=== PATIENT | female | born 1950 | race Caucasian/White ===

== ENCOUNTER → 2021-08-12 10:10 | Outpatient (CLI) | payer MEDICARE, SELFPAY ==
--- NOTE | ~2021-08-12 | XR_ITS ---
EXAMINATION: XR chest 2V DATE: 08/12/2021 10:28 INDICATION: Cough, unspecified TECHNIQUE: PA and lateral views of the chest are obtained. COMPARISON: 07/03/2018 FINDINGS: There is an approximately 10 cm mass of the right upper lobe. There is fullness of the righ t hilum. No pleural effusion or pneumothorax is identified. The heart size is normal. There is severe thoracic spondylosis. IMPRESSION: 1. Right upper lobe mass concerning for primary bronchogenic carcinoma. Further evaluation with CT of the chest is recommended. 2. Fullness of the right hilum which could reflect hilar lymphadenopathy Reviewed, dictated and finalized at location A.
== END ==
PROVIDERS: PCP Family Medicine; Visit Provider Physician Assistant Medical
DX: R05.9 Cough, unspecified (principal); J44.9 Chronic obstructive pulmonary disease, unspecified; M47.814 Spondylosis without myelopathy or radiculopathy, thoracic region
CPT/HCPCS: 71046

== ENCOUNTER 2021-08-13 07:25 | Outpatient (CLI) | payer MEDICARE, SELFPAY ==
--- NOTE | ~2021-08-13 | CT_ITS ---
EXAMINATION:CT diagnostic chest w con DATE: 08/13/2021 08:01 INDICATION: Mass in right lung upper lobe. TECHNIQUE: Computed tomography (CT) of the chest was performed with 75 mL Omnipaque 300 intravenous c ontrast. Automated exposure control and iterative reconstruction technique were employed. The dose-le ngth product (DLP) was 164.51 mGy-cm. COMPARISON: Chest 2 views 08/12/2021 FINDINGS: There is mild emphysema. There is a 10.3 x 8.0 cm mass in right lung upper lobe. There are airspace and groundglass opacities in right upper lobe and medial segment right middle lobe. There ar e groundglass opacities in superior segment right lower lobe. There is mild atelectasis bilaterally. There are tiny pleural effusions. The heart size is normal. There are coronary artery calcifications. No pericardial effusion. There is a 2.7 x 1.6 cm right hilar lymph node. There is severe thoracic sp ondylosis. IMPRESSION: 1. 10.3 x 8.0 cm mass in right lung upper lobe, consistent with primary bronchogenic carcinoma. CT-gu ided biopsy is recommended. 2. Right hilar lymphadenopathy, consistent with metastatic disease. 3. Pneumonia in right lung. 4. Mild emphysema. Reviewed, dictated and finalized at location A. IMPRESSION: 1. 10.3 x 8.0 cm mass in right lung upper lobe, consistent with primary broncho genic carcinoma. CT-guided biopsy is recommended. 2. Right hilar lymphadenopathy, consistent with metastatic disease. 3. Pneumonia in right lung. 4. Mild emphysema.
[2021-08-13 07:56] LABS: Estimated Glomerular Filt Rate > 60
== END 2021-08-13 07:26 | disposition home or self-care (01) ==
PROVIDERS: PCP Family Medicine; Visit Provider Physician Assistant Medical
DX: R91.8 Other nonspecific abnormal finding of lung field (principal); R93.89 Abnormal findings on diagnostic imaging of other specified body structures; R59.0 Localized enlarged lymph nodes; J18.9 Pneumonia, unspecified organism; J43.9 Emphysema, unspecified; J90 Pleural effusion, not elsewhere classified; M47.814 Spondylosis without myelopathy or radiculopathy, thoracic region
CPT/HCPCS: 71260; Q9967

== ENCOUNTER 2021-08-21 02:07 | Outpatient (CLI) | payer MEDICARE, SELFPAY ==
[2021-08-14 14:22] VITALS: BMI 19.5
--- NOTE | 2021-08-14 14:28 | PC.NURSE ---
Pre Radiology instructions Report to the Outpatient Waiting Room, entrance under the green pavilion located off [facility], at time ____929___ on date __08/21/21 . Procedure Time: ___1130 . One visitor will be allowed to accompany the patient into the hospital. The visitor will be instructed to remain with patient at all times or leave the building. We will allow the visitor to come back to the postoperative area when patient is ready. You and your visitor will be asked a series of questions to screen for COVID 19 for your protection. A mask is required within the hospital. Patients are to have no food or drink 6 hours prior to procedure time (0530 AM) Driving will be restricted after the procedure, you must have a person to drive you home. Labs will be drawn in preop area and once reviewed, you will be taken to radiology area for procedure. When the procedure is completed, you will be taken to outpatient where you will be monitored for several hours. You may have one visitor in this area. Other than holding anti-coagulants, patient may take other medication(s) as scheduled. Prior to your appointment date patients are instructed to hold anti-coagulants after discussing with ordering provider to stop. If unable to discontinue anti-coagulants please notify radiologist. No aspirin or warfarin (Coumadin) for 7 days prior to the procedure. No clopidogrel (Plavix), ticagrelor (Brilinta), prasugrel (Effient) or dabigatran (Pradaxa) for 5 days prior to the procedure. No rivaroxaban (Xarelto), apixaban (Eliquis), dipyridamole (Aggrenox or Persantine) or cilostazol (Pletal) for 2 days prior to the procedure. Medications to discontinue per physician: Date to take last dose: Please leave all valuables, including medications, at home the day of procedure. The hospital will not accept responsibility for valuables. Wear comfortable, loose fitting clothing. Follow any additional instructions given to you from ordering provider. Telephone instructions given to __PT and asked if any additional questions and then verbalized understanding. Patient advised to call scheduling provider office or registration scheduling [phone] if any additional questions.
[2021-08-21] VITALS (7 sets, daily range): BP systolic 136–170; BP diastolic 72–96; PULSE 59–72; RESP 16–22; TEMP 36.4; O2SAT 96–100
--- NOTE | ~2021-08-21 | XR_ITS ---
XR chest 1V portable DATE: 08/21/2021 15:33 INDICATION: 3 hour delayed chest radiograph post image guided percutaneous needle biopsy of right upp er lobe lung mass TECHNIQUE: Portable upright AP chest on 08/21/2021 1529 hours COMPARISON: 08/21/2021 portable AP chest at 1326 hours FINDINGS: There remains no evidence of right pneumothorax following percutaneous needle biopsy right upper lobe lung mass today. IMPRESSION: No iatrogenic right pneumothorax is detected [address]-guided percutaneous nee dle biopsy of right upper lobe lung mass Reviewed, dictated and finalized at location B. IMPRESSION: No iatrogenic right pneumothorax is detected [address]-g uided percutaneous needle biopsy of right upper lobe lung mass
--- NOTE | ~2021-08-21 | XR_ITS ---
EXAMINATION: XR chest 1V portable DATE: 08/21/2021 13:35 INDICATION: One hour post percutaneous right lung biopsy TECHNIQUE: frontal view of the chest was obtained. COMPARISON: Chest radiograph dated 08/21/21 FINDINGS: And seen is a large right upper lobe mass opacifying a significant portion of the right upper lung zo ne. Streaky opacities consistent compressive atelectasis and bronchovascular crowding in the more med ial right upper lobe. No other airspace opacities, pulmonary edema, pleural effusion or pneumothorax. The cardiomediastinal silhouette is normal. Mild S-shaped thoracolumbar scoliosis with severe spondy losis. IMPRESSION: 1. No pneumothorax or other acute cardiopulmonary disease post percutaneous biopsy of a large right u pper lobe mass concerning for primary bronchogenic carcinoma. Reviewed, dictated and finalized at location A. IMPRESSION: 1. No pneumothorax or other acute cardiopulmonary disease post percutaneous bio psy of a large right upper lobe mass concerning for primary bronchogenic carcin nani.
--- NOTE | ~2021-08-21 | XR_ITS ---
XR chest 1V 08/21/2021 12:35 Indication: Post right lung biopsy. Procedure: AP view of the chest Comparison: 08/12/2021 Findings: Heart size is normal. Left lung clear. No acute osseous abnormality. No pleural effusion or pneumothorax. Large right upper lobe mass, consistent with bronchogenic carcinoma until proven other hoffman. Impression: 1: Large right upper lobe mass, consistent with bronchogenic carcinoma until proven otherwise. No pne umothorax identified post biopsy. Reviewed, dictated and finalized at location A. Impression: 1: Large right upper lobe mass, consistent with bronchogenic carcinoma until pr oven otherwise. No pneumothorax identified post biopsy.
--- NOTE | ~2021-08-21 | CT_ITS ---
EXAMINATION: CT biopsy lung w/imaging DATE: 08/21/2021 12:47 INDICATION: Right upper lobe mass TECHNIQUE: The procedure including the risks and benefits was discussed with the patient. Risks discu ssed included infection, approximately 1/20 risk of symptomatic hemorrhage beyond mild hemoptysis, ap proximately 1/3 risk of pneumothorax, and approximately 1/10 risk of pneumothorax severe enough to wa rrant chest tube placement. The patient understood the risks and agreed to proceed. The patient was p laced supine. The skin overlying the infraclavicular right anterior chest was prepped and draped in sterile fashion. Anesthetic was administered with 1% lidocaine subcutaneously. A 19 gauge outer nee dle was advanced under CT guidance to the lesion of interest. A 20 gauge core biopsy needle was then used to obtain 5 core biopsy specimens. The needle was removed and the entry site was cleaned and isiah ssed. There were no immediate complications. The dose-length product was 83.54 mGy-cm. FINDINGS: CT images demonstrate the outer needle tip within the 9.5 x 8.3 cm right upper lobe mass. IMPRESSION: 1. Successful CT-guided biopsy of a 9.5 cm right upper lobe mass. Reviewed, dictated and finalized at location A.
[2021-08-21 10:18] LABS: Mean Platelet Volume 9.8 fl (7.4-10.4); Platelet Count Result 308 k/mm3 (150-375)
[2021-08-21 11:14] LABS: Prothrombin Time 13.1 Seconds (11.1-14.7)
== END 2021-08-21 15:50 | disposition home or self-care (01) ==
PROVIDERS: PCP Family Medicine; Referring Provider Physician Assistant Medical; Visit Provider Radiology Diagnostic Radiology
PROC: BB24ZZZ Computerized Tomography (CT Scan) of Bilateral Lungs (ICD-10-PCS; CPT 32408; principal; 2021-08-21 11:30)
DX: R91.8 Other nonspecific abnormal finding of lung field (principal); R68.89 Other general symptoms and signs
CPT/HCPCS: 32408; 36415; 71045; 85049; 85610; 88305; 88342

== ENCOUNTER 2021-09-22 00:24 | Day surgery (SDC) | payer MEDICARE, SELFPAY ==
--- NOTE | 2021-09-16 13:12 | PC.NURSE ---
Report to the Outpatient Waiting Room, entrance under the green pavilion located off [facility], at time _1200 on date _09/22/21 . OR Time: __1400 . - You and your visitor will be asked a series of questions to screen for COVID 19 for your protection. - Only one visitor is allowed at this time. - The patient visitor is requested to leave or wait in car when not with patient. - A mask is required within the hospital. Patients may have clear liquids (water, carbonated beverages, clear teas, apple juice) until 3 hours prior to surgery with a maximum of 20 ounces. - No food from midnight until time of surgery - Infants may have breast milk until 4 hours before surgery, infant formula 6 hours prior to surgery. - Children will be allowed to drink immediately following surgery. If applicable, please bring a bottle or sippy cup to assist with drinking. Juice, water, soda, and popsicles are readily available. For infants on formula, please bring formula the day of surgery. Pacifiers are allowed. Take the following medications with a SIP of water the morning of surgery: ____INHALER Medications to discontinue per physician NONE Date to take last dose Please no make-up, nail yoruba, hairspray, perfume, deodorant, or body powder the day of surgery. No jewelry (including any body piercings) or valuables the day of surgery, leave them at home. Please take a shower or bath the night before, or the morning of, surgery with an antibacterial soap. Wear comfortable, loose fitting clothing. Children are encouraged to wear pajamas. - Jewelry must be removed prior to entering the operating room. Rings and piercings that are not removed may be cut off. - The hospital will not accept responsibility for valuables. - Please leave all valuables, including medications, at home the day of surgery. If you are going home after surgery, a licensed car pick up driver must drive you home. - NO public transportation without another adult. - We recommend that an adult stay with you for 24 hours following discharge. - We also recommend that you do not drive, make important decision, drink alcoholic beverages, or take any drugs that were not prescribed by your health care provider for at least 24 hours after your discharge time. For Pediatric surgeries, we recommend two adults accompany the child home (only one inside the building at this time). Follow any additional instructions given to you from your surgeon. If you or anyone in your household have experienced Covid symptoms in the past week, please notify your surgeon or the nurse liaison at the phone number below for possible testing. Telephone instructions given to __PATIENT and asked if any additional questions and then verbalized understanding. Patient advised to call surgeon office or pre surgery nurse liaison [phone] if any additional questions.
[2021-09-16 13:20] VITALS: BMI 19.0
--- NOTE | 2021-09-19 14:35 | WPDANESEPPF ---
Anes - Initial Pre Proc Eval Procedure: Operation Date: 09/22/21 11:30 Proposed Procedures p Insertion Rocio Cath - Atif Forrest DO <Link Bettencourt MD - Last Filed: 09/24/21 12:35> Date/Time: 09/19/21 14:35 <Link Bettencourt MD - Last Filed: 09/24/21 12:35> Surgeon: Atif Forrest DO <Link Bettencourt MD - Last Filed: 09/24/21 12:35> Pre Op Diagnosis: malignant neoplasm upper lobe right lung <Link Bettencourt MD - Last Filed: 09/24/21 12:35> Patient Data Age: 70 Gender: F Height: 1.57 m Weight: 47.2 kg <Link Bettencourt MD - Last Filed: 09/24/21 12:35> Allergies Allergy/AdvReac Type Severity Reaction Status Date / Time codeine Allergy Unknown Nausea and Verified 09/22/21 09:54 Vomiting <Link Bettencourt MD - Last Filed: 09/24/21 12:35> Home Medications Medication Instructions Recorded Confirmed Type umeclidinium 62.5 mcg-vilanterol 1 inh inhalation Q24H #180 ea 05/27/21 09/22/21 Rx 25 mcg/actuation powdr for inhalation (Anoro Ellipta) albuterol sulfate 90 mcg/actuation 1 puff inhalation Q4H PRN 08/04/21 09/22/21 Rx aerosol inhaler (ProAir HFA) shortness of breath or wheezing #8 grams sertraline 100 mg tablet 200 mg PO HS 08/14/21 09/22/21 History ibuprofen 600 mg tablet 600 mg PO QID PRN Pain 09/16/21 09/22/21 History tramadol 50 mg tablet 50 mg PO Q8H PRN pain #90 tabs 09/17/21 09/18/21 Rx oxycodone 5 mg capsule 5 mg PO Q8H PRN Pain #21 caps 09/18/21 Rx <Link Bettencourt MD - Last Filed: 09/24/21 12:35> Patient hx anesthesia problems: none <Slick Hale DO - Last Filed: 09/22/21 12:28> Family hx anesthesia problems: none <Slick Hale DO - Last Filed: 09/22/21 12:28> Results Review: All pre-operative results and documents have been reviewed as part of the pre-operative evaluation. <Link Bettencourt MD - Last Filed: 09/24/21 12:35> [facility] Past Medical History Medical History: Medical History Achrochordon Acute bronchitis, unspecified Alcohol abuse Alcohol use Anxiety disorder, unspecified Benign hypertension BMI 20.0-20.9, adult BMI 21.0-21.9, adult BMI between 19-24,adult Chronic sinus complaints Depression with anxiety Dietary counseling and surveillance (12/07/17) Elevated AFP Elevated bilirubin Elevated fasting glucose Elevated liver enzymes Hepatic cyst Hyperlipidemia, unspecified Liver disease Low back pain Low vitamin D level Mild neurocognitive disorder Other chronic pain Right lower quadrant abdominal pain Routine physical examination Screening for breast cancer Screening for colon cancer Skin lesion Tobacco abuse Urinary symptom or sign <Link Bettencourt MD - Last Filed: 09/24/21 12:35> Surgical History Surgical History: Surgical History Hx of cataract surgery <Link Bettencourt MD - Last Filed: 09/24/21 12:35> Family History Family History: Family History Mother Hypertension Family history of diabetes mellitus in first degree relative Father Hypertension Family history of diabetes mellitus in first degree relative Family history of coronary artery disease Sibling Hypertension Heart disease COPD (chronic obstructive pulmonary disease) Immune disorder Son Asthma Daughter Hypertension <Link Bettencourt MD - Last Filed: 09/24/21 12:35> Social History Social History: Social History Smoking packs per day: 1.5 Smoking cigarettes per day: 30.0 Years smoked: 50 Smoking pack-years: 75.00 Smoking status: Current every day smoker Tobacco type: cigarettes Second hand tobacco smoke exposure: No Alcohol intake: current Drinks per week: 6 Substance use: current Substance us
--- NOTE | ~2021-09-22 | XR_ITS ---
EXAMINATION: XR chest port-a-cath/central DATE: 09/22/2021 14:23 INDICATION: Port catheter insertion TECHNIQUE: frontal view of the chest was obtained. COMPARISON: Chest radiograph dated 08/21/2021 FINDINGS: Interval placement of a left internal jugular central venous port catheter with distal tip in the cau gini superior vena cava near the superior cavoatrial junction. Left lung is clear. Large masslike opac ity occupying a significant portion of the right mid to upper lung zone consistent with biopsy-proven lung cancer. Mild reticular opacities in the more medial right upper lung zone which could represent atelectasis or postobstructive pneumonia or pulmonary edema. No pleural effusion or pneumothorax. Th e cardiomediastinal silhouette is normal.. Mild lower thoracic dextrocurvature and upper thoracic lev ocurvature. IMPRESSION: 1. Left internal jugular central venous port catheter tip at the caudal superior vena cava. 2. Large mass in the right mid to upper lung zone consistent with biopsy-proven primary lung cancer. 3. Increased interstitial pattern in the medial right upper lung zone which could represent secondary atelectasis or postobstructive pneumonia or pulmonary edema. Reviewed, dictated and finalized at location A. IMPRESSION: 1. Left internal jugular central venous port catheter tip at the caudal superio r vena cava. 2. Large mass in the right mid to upper lung zone consistent with biopsy-proven primary lung cancer. 3. Increased interstitial pattern in the medial right upper lung zone which cou ld represent secondary atelectasis or postobstructive pneumonia or pulmonary ed maximo.
--- NOTE | ~2021-09-22 | XR_ITS ---
EXAMINATION: XR fl guide central line place DATE: 09/22/2021 14:09 INDICATION: Port catheter insertion TECHNIQUE: 4 fluoroscopic images of the chest were obtained during procedure performed by Dr. Forrest . Radiologist was not present for the imaging or procedure. The amount of fluoroscopy time used pratimain g this procedure was 1.5 minutes. COMPARISON: 08/21/2021 FINDINGS: Images demonstrate placement of a left internal jugular central venous port catheter with distal tip near the superior cavoatrial junction. Large masslike opacity right upper lobe consistent with biopsy -proven lung cancer. Visualized portion of the left lung are clear. No evident pneumothorax. IMPRESSION: 1. Left internal jugular central venous port catheter tip at the superior cavoatrial junction. 2. Large right upper lobe mass consistent with biopsy-proven primary bronchogenic carcinoma. Reviewed, dictated and finalized at location A. IMPRESSION: 1. Left internal jugular central venous port catheter tip at the superior cavoa trial junction. 2. Large right upper lobe mass consistent with biopsy-proven primary bronchogen ic carcinoma.
[2021-09-22] MEDS: LACTATED RINGERS 1,000 ML 30 ML IV CONT (10:00)
[2021-09-22 10:15] VITALS: BP 162/82; PULSE 63; TEMP 36.7; O2SAT 99
[2021-09-22] MEDS: fentaNYL CITRATE INJ (*CRX) 100 MCG/2 ML VIAL 50 MCG IV PUSH (10:35)
[2021-09-22] MEDS: KETOROLAC 15 MG/ML VIAL (*BKC) IV PUSH (12:23)
--- NOTE | 2021-09-22 13:12 | WPDHPUPDATE1 ---
History and Physical Update Update Date/Time: 09/22/21 13:12 History and Physical has been reviewed, including an updated exam of the patient. There are NO changes in the patient's condition. Risks, benefits, and alternatives have been discussed and questions answered. Patient agrees to proceed with procedure.
--- NOTE | 2021-09-22 13:12 | PM.IMHP ---
H&P: HPI History of Present Illness Date/Time: 09/22/21 13:12 Chief Complaint: Right lung cancer Narrative: 70 yo presents with recent finding of right lung cancer. She has seen the Oncologist and is planning to start chemotherapy. She is in need of port placement to start chemo. Review of Systems Review of Systems: All systems reviewed & are unremarkable except as noted in HPI and below Constitutional: Constitutional: Denies chills, Denies fever(s), Denies headache(s) and Denies weight loss Eyes: Eyes: Denies change in vision ENT: Denies dizziness, Denies headache(s), Denies neck mass and Denies throat swelling Cardiovascular: Cardiovascular: Denies chest pain, Denies lightheadedness and Denies dyspnea Respiratory: Respiratory: Denies cough, Denies dyspnea and Denies wheezing Gastrointestinal: Gastrointestinal: Denies abdominal pain, Denies change in bowel habits, Denies nausea and Denies vomiting Genitourinary: Genitourinary: Denies hematuria and Denies dysuria Musculoskeletal: Musculoskeletal: Reports as per HPI Integumentary/Breasts: Skin/Breast: Reports as per HPI Neurologic: Denies dizziness and Denies headache(s) Allergic/Immunologic: Allergic/Immunologic: Denies throat swelling and Denies wheezing PMFSH Past Medical History Medical History Achrochordon Acute bronchitis, unspecified Alcohol abuse Alcohol use Anxiety disorder, unspecified Benign hypertension BMI 20.0-20.9, adult BMI 21.0-21.9, adult BMI between 19-24,adult Chronic sinus complaints Depression with anxiety Dietary counseling and surveillance (12/07/17) Elevated AFP Elevated bilirubin Elevated fasting glucose Elevated liver enzymes Hepatic cyst Hyperlipidemia, unspecified Liver disease Low back pain Low vitamin D level Mild neurocognitive disorder Other chronic pain Right lower quadrant abdominal pain Routine physical examination Screening for breast cancer Screening for colon cancer Skin lesion Tobacco abuse Urinary symptom or sign Surgical History Surgical History Hx of cataract surgery Family History Family History Mother Hypertension Family history of diabetes mellitus in first degree relative Father Hypertension Family history of diabetes mellitus in first degree relative Family history of coronary artery disease Sibling Hypertension Heart disease COPD (chronic obstructive pulmonary disease) Immune disorder Son Asthma Daughter Hypertension Social History Social History Smoking packs per day: 1.5 Smoking cigarettes per day: 30.0 Years smoked: 50 Smoking pack-years: 75.00 Smoking status: Current every day smoker Tobacco type: cigarettes Second hand tobacco smoke exposure: No Alcohol intake: current Drinks per week: 6 Substance use: current Substance use type: marijuana Last use: July Living arrangements: with family Additional occupation/education comments: [employer] Gender identity (if verbalized by the patient): Female Spiritual care concerns: No Meds Home Medications and Allergies Home Medications Medication Instructions Recorded Confirmed Type umeclidinium 62.5 mcg-vilanterol 1 inh inhalation Q24H #180 ea 05/27/21 09/22/21 Rx 25 mcg/actuation powdr for inhalation (Anoro Ellipta) albuterol sulfate 90 mcg/actuation 1 puff inhalation Q4H PRN 08/04/21 09/22/21 Rx aerosol inhaler (ProAir HFA) shortness of breath or wheezing #8 grams sertraline 100 mg tablet 200 mg PO HS 08/14/21 09/22/21 History ibuprofen 600 mg tablet 600 mg PO QID PRN Pain 09/16/21 09/22/21 History tramadol 50 mg tablet 50 mg PO Q8H PRN pain #90 tabs 09/17/21 09/18/21 Rx oxycodone 5 mg capsule 5 mg PO Q8H PRN Pain #21 caps 09/18/21 Rx
[2021-09-22] MEDS: ceFAZolin 2 GM/D5W 50 ML 2 GM/50 ML BAG IVPB (13:22)
[2021-09-22] MEDS: LIDO 1%/EPINEPHRINE 1:100,000 50 ML VIAL INFILTRATE (13:42)
[2021-09-22] MEDS: HEPARIN SODIUM, PORCINE 10,000 UNITS/10 ML VIAL 3000 UNITS IRRIGATION (13:44)
[2021-09-22] MEDS: HEPARIN SODIUM 5,000 UNITS/ML VIAL 5000 UNITS IRRIGATION (13:46)
--- NOTE | 2021-09-22 14:13 | W.PM.PROC2 ---
Procedure Note - Detailed Date of Procedure 09/22/21 Pre-op Diagnosis malignant neoplasm upper lobe right lung Post-op Diagnosis Same Procedure Performed Left Internal Jugular tunneled Port-a-Cath placement using ultrasound and fluoroscopic guidance Surgeon Atif Forrest, DO Anesthesia MAC and Local (0.5% bupivicaine with epinephrine) Indications This is a 70-year-old woman who presented with a recent finding of right lung cancer. She has seen Oncology and is planning to undergo chemotherapy treatment. She is in need of Port-A-Cath placement to initiate chemotherapy. Findings SonoSite ultrasound was used to identify the left internal jugular vein. This was visualized as a compressible vessel just lateral to the pulsatile carotid artery. The 18 gauge introducer needle was advanced under ultrasound guidance directly into the lumen of the vein. Dark nonpulsatile blood was aspirated. A 0.035 in guidewire was then advanced under fluoroscopic guidance. There was some angulation as the guidewire was advancing past the sternum. I advanced the dilator over the guidewire under fluoroscopic guidance to help obtain an adequate the guidewire to advance superior vena cava. Eventually the guidewire was able to advance into the SVC and down into the right atrium. Fluoroscopy was then used to guide advancement of the catheter tubing as well. The final fluoroscopic images demonstrated the port in proper position and the catheter tip in the distal SVC without any kinks along its path. Description of Procedure Procedure as well as risks, benefits, and alternatives were discussed with patient. Written consent was obtained and placed in chart prior to procedure. Patient was brought back to surgical suite. Was placed supine on operating table. Time-out was done confirm patient procedure. IV sedation was then administered by the Anesthesia Department. The chest and neck area was prepped and draped in sterile fashion using chlorhexidine prep. Patient was placed in Trendelenburg position. SonoSite ultrasound was used to identify the left internal jugular vein. It was visualized as a compressible vessel just lateral to the carotid artery. 1% lidocaine with epinephrine was infiltrated directly over the vessel under ultrasound guidance. An 18 gauge introducer needle was then advanced under ultrasound guidance directly into the left internal jugular vein. Dark nonpulsatile blood was aspirated. A 0.035 in guidewire was then advanced through the needle under fluoroscopic guidance. The guidewire was visualized advancing all the way down into the superior vena cava. 1% lidocaine with epinephrine was then infiltrated on the left anterior chest and along the tract up to the guidewire insertion site. A 3 cm incision was made with a 15 blade scalpel, and electrocautery was then used for dissection down through the subcutaneous tissue to the pectoral fascia. A pocket was created just inferior to the incision using blunt dissection. A small kellee incision was then also made at the insertion site at the neck. The tunneler was then advanced from the chest incision up to the neck incision and the catheter tubing was brought up through this tract. The dilator and sheath were then advanced over the guidewire under fluoroscopic visualization. The dilator and guidewire were then removed leaving the sheath in place. The catheter tubing was then advanced through the sheath under fluoroscopic guidance. The sheath was unsnapped and carefully peeled away. The catheter tubing was released underneath the neck incision. Fluoroscopy was used to confirm proper placement of the catheter tubing and no kinks along its path. The catheter was then cut to proper length and secured to the port. The port was then accessed with a Reid needle and aspirated and flushed with heparinized saline. The port function with ease. The port was then hep-locked with Hep-Lock solution. The port was then placed wit
[2021-09-22 14:15] VITALS: BP 110/63; PULSE 64; RESP 12; TEMP 36.5; O2SAT 100
[2021-09-22 14:30] VITALS: BP 106/67; PULSE 62; RESP 16; O2SAT 100
[2021-09-22 14:45] VITALS: BP 104/68; PULSE 66; RESP 16; O2SAT 100
[2021-09-22 14:57] VITALS: BP 147/77; PULSE 76; RESP 16
[2021-09-22 15:20] VITALS: BP 145/76; PULSE 69; RESP 16
== END 2021-09-22 15:32 | disposition home or self-care (01) ==
PROVIDERS: PCP Family Medicine; Visit Provider Surgery
PROC: (CPT 36561; principal; 2021-09-22 11:30)
DX: C34.91 Malignant neoplasm of unspecified part of right bronchus or lung (principal); F41.9 Anxiety disorder, unspecified; I10 Essential (primary) hypertension; F32.A Depression, unspecified; R74.01 Elevation of levels of liver transaminase levels; K76.89 Other specified diseases of liver; E55.9 Vitamin D deficiency, unspecified; G31.84 Mild cognitive impairment of uncertain or unknown etiology; R73.01 Impaired fasting glucose; F17.210 Nicotine dependence, cigarettes, uncomplicated; F12.90 Cannabis use, unspecified, uncomplicated; Z79.51 Long term (current) use of inhaled steroids
CPT/HCPCS: 36561; 77001; C1788; J0690; J1644; J1885; J2405; J2704; J3010; J7040; J7120

== ENCOUNTER 2021-09-25 07:09 | Outpatient (CLI) | payer MEDICARE, SELFPAY ==
--- NOTE | ~2021-09-25 | MR_ITS ---
EXAMINATION: MR brain/brain stem wo/w con DATE: 09/25/2021 08:33 INDICATION: Malignant neoplasm of upper lobe of right lung. TECHNIQUE: Magnetic resonance imaging (MRI) of the brain and brainstem was performed without and with 9 mL MultiHance intravenous contrast. COMPARISON: None. FINDINGS: There are scattered areas of nonspecific increased T2-weighted signal intensity in the cere bral white matter, which is within normal limits for the patient's age. There is no intracranial hemo rrhage, acute infarction, or abnormal intracranial mass lesion. The ventricles are normal in size. Th e paranasal sinuses are clear. There are likely changes of ocular lens replacement surgeries. The mas toid air cells are normal. IMPRESSION: 1. Normal aging brain. Reviewed, dictated and finalized at location A. IMPRESSION: 1. Normal aging brain.
--- NOTE | ~2021-09-25 | PE_ITS ---
EXAMINATION: PET skull to mid thigh DATE: 09/25/2021 10:24 INDICATION: Malignant neoplasm of upper lobe of right lung. TECHNIQUE: Blood glucose level was 103 mg/dL. 11.237 mCi of 18-fluorodeoxyglucose (18-FDG) was admini stered i.v. Low dose computed tomography (CT) images were acquired from the base of the brain to the proximal thighs for attenuation correction and anatomic localization. Automated exposure control was employed. Dose-length product (DLP) was 296 mGy-cm. Positron emission tomography (PET) images were ac quired in the same distribution. COMPARISON: Chest CT 08/13/2021, brain MRI 09/25/21 FINDINGS: Head/neck: There is focal increased activity in right parotid gland with maximum SUV of 4.4 without a bnormal MRI correlate, likely physiologic. There are no pathologically enlarged lymph nodes. Chest: There is 11.0 x 8.9 cm mass in right lung upper lobe contiguous with the right hilum with maxi mum SUV of 18.6. There are airspace and groundglass opacities in right upper lobe, right middle lobe, and right lower lobe with low-level activity in right lower lobe, consistent with pneumonia. No pleu ral effusion. There is a left internal jugular port with tip at superior cavoatrial junction. The hea rt size is normal. There are coronary artery calcifications. No pericardial effusion. Abdomen/pelvis/proximal thighs: The liver, gallbladder, spleen, adrenal glands, and kidneys are darin l. There are no dilated loops of bowel. There are no pathologically enlarged lymph nodes. There is no free intraperitoneal fluid. There is no osseous malignancy. IMPRESSION: 1. 11.0 x 8.9 cm mass in right lung upper lobe with maximum SUV of 18.6, consistent with primary bron chogenic carcinoma. 2. Pneumonia in right lung. Reviewed, dictated and finalized at location A. IMPRESSION: 1. 11.0 x 8.9 cm mass in right lung upper lobe with maximum SUV of 18.6, consis tent with primary bronchogenic carcinoma. 2. Pneumonia in right lung.
[2021-09-25 08:51] LABS: Glucose Point of Care 103 mg/dl (65-105)
== END 2021-09-25 07:10 | disposition home or self-care (01) ==
PROVIDERS: PCP Family Medicine; Visit Provider Internal Medicine Hematology & Oncology
DX: Z03.89 Encounter for observation for other suspected diseases and conditions ruled out (principal); C34.11 Malignant neoplasm of upper lobe, right bronchus or lung; I82.4Y9 Acute embolism and thrombosis of unspecified deep veins of unspecified proximal lower extremity; I25.10 Atherosclerotic heart disease of native coronary artery without angina pectoris; R91.8 Other nonspecific abnormal finding of lung field; J18.9 Pneumonia, unspecified organism
CPT/HCPCS: 70553; 78815; A9552; A9577

== ENCOUNTER 2022-01-03 19:01 | Emergency (ER) | payer MEDICARE, SELFPAY ==
[2022-01-03] VITALS (32 sets, daily range): BP systolic 74–106; BP diastolic 51–96; PULSE 84–100; RESP 10–27; TEMP 37; O2SAT 88–99
--- NOTE | ~2022-01-03 | CT_ITS ---
EXAMINATION: CT cervical spine wo con DATE: 01/03/2022 19:53 INDICATION: Syncope. Patient fell out of chair. Neck and upper back pain. TECHNIQUE: Computed tomography (CT) of the cervical spine was performed without intravenous contrast. Automated exposure control and iterative reconstruction technique were employed. Exam dose: 139.28 mGy-cm total exam DLP. COMPARISON: None FINDINGS: There is prominent reversal of cervical curvature which may be due to muscle spasm. C1 and C2 are normally aligned and the odontoid process is intact. No fracture or dislocation, locked facet or prevertebral soft tissue swelling. There is severe degenerative disc disease and approximately 1.6 mm retrolisthesis at C5-6. There is severe degenerative disc disease and approximately 1.4 mm retrolisthesis at C6-7. There is 1 mm anterolisthesis at C7-T1. There is prominent osteoarthritic change at the apophyseal raoul ints on the right and C2-3 and on the left at C7-T1. There is prominent uncovertebral joint spurring bilaterally at C5-6 and C6-7. IMPRESSION: Prominent reversal cervical curvature Prominent cervical spondylosis No fracture or dislocation or locked facet or prevertebral soft tissue swelling Reviewed, dictated and finalized at Location A. Reviewed, dictated and finalized at location A. NQUENCY PREVENTION SOCIAL WORKER
--- NOTE | ~2022-01-03 | CT_ITS ---
EXAMINATION: CT brain wo con DATE: 01/03/2022 19:53 INDICATION: Syncope. Patient fell out of chair. TECHNIQUE: Computed tomography (CT) of the head was performed without intravenous contrast. The mA wa s adjusted according to patient size. Iterative reconstruction technique was employed. Exam dose: 60 5.33 mGy-cm total exam DLP. COMPARISON: None FINDINGS: No intracranial mass lesion or hemorrhage or cerebrovascular accident. No midline shift or mass effect. Prominent bilateral carotid siphon internal carotid artery calcifications. There is nonspecific dimin ished attenuation of the cerebral white matter, likely due to chronic small vessel ischemic change. No subdural or epidural hematoma. Included paranasal sinuses and mastoid air cells are unremarkable. No fracture or bone destruction of the cranial vault. IMPRESSION: Cerebral atherosclerosis and chronic small vessel ischemic changes of the cerebral white matter No skull fracture or acute intracranial finding Reviewed, dictated and finalized at Location A. Reviewed, dictated and finalized at location A. SETTER
--- NOTE | ~2022-01-03 | CT_ITS ---
EXAMINATION: CT thoracic spine wo con DATE: 01/03/2022 19:53 INDICATION: Syncope, fall. Back pain. TECHNIQUE: Computed tomography (CT) of the thoracic spine was performed without intravenous contrast. Automated exposure control and iterative reconstruction technique were employed. Exam dose: 271.27 mGy-cm total exam DLP. COMPARISON: None FINDINGS: There is severe degenerative disc disease at C5-6. There is severe degenerative disease and mild retrolisthesis at C6-7. There is minimal anterolisthesis at T3-4, T4-5 and T9-10. There is multilevel degenerative disc disea se of the thoracic spine. There is minimal anterior wedging of T11 and T12 vertebral bodies which appears to be chronic. No definite recent fracture of the thoracic spine is evident. No suspicious osteolytic or osteoblasti c lesion of the thoracic spine is noted. IMPRESSION: No recent thoracic spine fracture is evident Degenerative changes of the cervical and thoracic spine Reviewed, dictated and finalized at Location A. Reviewed, dictated and finalized at location A. DIVING TEACHER
--- NOTE | 2022-01-03 19:13 | ECG_ITS ---
Measurements Intervals [place] Rate: 94 P: 62 HI: 149 QRS: 47 QRSD: 72 T: 116 QT: 341 QTc: 427 Interpretive Statements SINUS RHYTHM ST-T WAVE ABNORMALITY IN ANTEROLATERAL LEADS- CONSIDER ISCHEMIA ABNORMAL ECG NO PREVIOUS ECG AVAILABLE FOR COMPARISON Electronically Signed On 01-03-2022 19:47:58 BEVERAGE DISTILLER by Santos Nguyen D.O.
--- NOTE | 2022-01-03 19:30 | ED.DIZZY ---
HPI - Dizziness General Chief Complaint: Syncope Stated Complaint: dizziness/fall ?syncopal episode Time Seen by Provider: 01/03/22 19:13 History of Present Illness HPI Narrative: 71-year-old female presenting to the emergency department for evaluation of dizziness and a syncopal episode. Patient is currently undergoing treatment for lung cancer and follows up with Dr. Carmona. Patient did have multiple radiation treatments and just completed her last chemo treatment yesterday. Patient states last few treatments have been hard on her and she has been excessively tired. Patient reports today she was sitting in her chair and had onset of dizziness and some nausea. Patient states this lasted about 20 minutes. Towards the end of this. She began to feel increasingly dizzy and ultimately slid from her chair onto the floor and hurt her upper back. Patient states when she was on the ground she suspects she was only unconscious for less than a second. Patient denies any associated chest pain or shortness of breath. Patient does complain of upper back pain and some stomach queasiness at this time. Related Data Home Medications Medication Instructions Recorded Confirmed sertraline 100 mg tablet 200 mg PO HS 08/14/21 01/02/22 sucroferric oxyhydroxide 500 mg 500 mg PO BID 12/11/21 01/02/22 chewable tablet Allergies Allergy/AdvReac Type Severity Reaction Status Date / Time codeine Allergy Unknown Nausea and Verified 01/03/22 19:17 Vomiting Review of Systems Review of Systems: CONSTITUTIONAL: Denies fever, chills, or sweats. EYES: Denies visual changes, redness, or discharge. ENT: Denies rhinorrhea, congestion, sore throat, or otalgia. CARDIOVASCULAR: Denies chest pain, palpitations, or edema. RESPIRATORY: Denies cough or dyspnea. GASTROINTESTINAL: See HPI GENITOURINARY: Denies dysuria or hematuria. SKIN: Denies rash or itching. MUSCULOSKELETAL: Denies back pain, joint pain, or myalgia. NEUROLOGIC: Syncope, denies any associated numbness or weakness. [facility] Past Medical History Medical History Achrochordon Acute bronchitis, unspecified Alcohol abuse Alcohol use Anxiety disorder, unspecified Benign hypertension BMI 20.0-20.9, adult BMI 21.0-21.9, adult BMI between 19-24,adult Body mass index (BMI) less than 20 Chronic sinus complaints Depression with anxiety Dietary counseling and surveillance (12/07/17) Elevated AFP Elevated bilirubin Elevated fasting glucose Elevated liver enzymes Hepatic cyst Hyperlipidemia, unspecified Liver disease Low back pain Low vitamin D level Mild neurocognitive disorder Other chronic pain Right lower quadrant abdominal pain Routine physical examination Screening for breast cancer Screening for colon cancer Skin lesion Tobacco abuse Urinary symptom or sign Surgical History Surgical History Hx of cataract surgery Family History Family History Mother Hypertension Family history of diabetes mellitus in first degree relative Father Hypertension Family history of diabetes mellitus in first degree relative Family history of coronary artery disease Sibling Hypertension Heart disease COPD (chronic obstructive pulmonary disease) Immune disorder Son Asthma Daughter Hypertension Social History Social History (Updated 12/24/21 @ 08:13 by Donna Olivarez CMA) Smoking packs per day: 0.5 Smoking cigarettes per day: 10.0 Years smoked: 55 Smoking pack-years: 27.50 Smoking status: Former smoker Tobacco type: cigarettes Second hand tobacco smoke exposure: No Alcohol intake: current Drinks per week: 6 Substance use: current Substance use type: marijuana Last use: July Additional occupation/education comments: [employer]-temporary leave of absence. Florin
--- NOTE | 2022-01-03 19:33 | PC.NURSE ---
Patient taken to CT and xray at this time.
[2022-01-03] MEDS: SODIUM CHLORIDE 0.9% IV 1,000 ML 999 ML IV CONT ×2 (19:56→20:24)
[2022-01-03 20:02] LABS: Basophils Percent Auto 0.4 % (0.2-1.2); Eosinophils Absolute Auto 0.1 K/mm3 (0-0.3); Eosinophils Percent Auto 1.3 % (0-4.4); Hematocrit 31.4 % (37.0-47.0); Hemoglobin 10.2 g/dL (12.0-15.0); Immature Granulocyte Absolute 0.02 K/mm3 (0.00-0.031); Immature Granulocyte Percent A 0.4 % (0-0.5); Lymphocytes Absolute Auto 0.15 K/mm3 (0.9-3.2); Lymphocytes Percent Auto 3.2 % (18.3-44.2); Mean Corpuscular HGB Conc 32.5 g/dl (32-36); Mean Corpuscular Hemoglobin 30.3 pg (26-34); Mean Corpuscular Volume 93.2 fl (80-100); Mean Platelet Volume 9.4 fl (7.4-10.4); Monocytes Absolute Auto 0.2 K/mm3 (0.1-0.6); Monocytes Percent Auto 3.6 % (2.6-8.5); Neutrophils Absolute Auto 4.3 K/mm3 (1.3-6.7); Neutrophils Percent Auto 91.1 % (45.5-73.1); Platelet Count Result 162 k/mm3 (150-375); Red Blood Count 3.37 M/mm3 (4.2-5.4); White Blood Count 4.7 K/mm3 (4.5-10.0)
[2022-01-03 20:13] LABS: Alanine Aminotransferase 13 U/L (6-35); Albumin Level 3.3 g/dL (3.5-5.1); Alkaline Phosphatase 75 U/L (38-126); Anion Gap 8 mmol/L (8-16); Aspartate Amino Transferase 21 U/L (14-36); Bilirubin,Total 0.3 mg/dL (0.2-1.3); Blood Urea Nitrogen 17 mg/dL (7-17); Calcium 7.7 mg/dL (8.4-10.2); Carbon Dioxide 22 mmol/L (22-30); Chloride 103 mmol/L (98-107); Estimated CRCL calculation 46 ml/min; Estimated Glomerular Filt Rate > 60; Glucose 101 mg/dL (65-110); Potassium 3.7 mmol/L (3.4-5.0); Sodium 133 mmol/L (137-145)
[2022-01-03 20:38] LABS: Influenza A QL RT-PCR Negative (Negative); Influenza B QL RT-PCR Negative (Negative); SARS-CoV-2 RNA PCR Negative
[2022-01-03 21:30] LABS: Appearance Urine Clear (Clear); Bilirubin Urine Negative (Negative); Blood Urine Trace-intact (Negative); Color Urine Yellow (Yellow); Glucose Urine UA Negative (Negative); Ketones Urine Trace mg/dL (Negative); Leukocyte Esterase Ur Negative LEU/UL (Negative); Nitrate Urine Negative (Negative); Protein Urine Negative (Negative); Specific Grav Ur 1.015 (1.001-1.035); Urobilinogen Urine 0.2 mg/dL (<2.0)
[2022-01-03 21:34] LABS: Add Urine Microscopic? YES; Mucus Urine Rare /lpf; RBC Urine 0-2 /hpf (0-2); Squamous Epithelial Cell Urine Rare /hpf (Few); WBC Urine 0-3 /hpf
== END 2022-01-03 23:15 | disposition home or self-care (01) ==
PROVIDERS: Emergency Provider Emergency Medicine; PCP Family Medicine
DX: I95.1 Orthostatic hypotension (principal); M54.9 Dorsalgia, unspecified; E78.5 Hyperlipidemia, unspecified; I10 Essential (primary) hypertension; Z87.891 Personal history of nicotine dependence; Z20.822 Contact with and (suspected) exposure to COVID-19
CPT/HCPCS: 36415; 70450; 72125; 72128; 80053; 81001; 85025; 87636; 93005; 96360; 99284; J7030

== ENCOUNTER 2022-01-19 08:59 | Outpatient (CLI) | payer MEDICARE, SELFPAY ==
--- NOTE | ~2022-01-19 | CT_ITS ---
EXAMINATION: CT diagnostic chest w con DATE: 01/19/2022 09:28 INDICATION: Malignant neoplasm of the right upper lobe. TECHNIQUE: Computed tomography (CT) of the chest was performed with 75 cc Omnipaque 350 intravenous c ontrast. The dose-length product was 135.07 mGy-cm. Automated exposure control and iterative reconstr uction technique were employed. COMPARISON: CT dated 08/13/2021 FINDINGS: There is a persistent right upper lobe mass measuring 9.4 cm AP x8.6 cm transverse x9 cm cr aniocaudal compared with 10.3 x 8 x 9.7 cm on prior examination, consistent with known primary bronch ogenic carcinoma. The mass extends to the right hilum there is right hilar lymph node measuring 1.7 x 1.3 cm cm compared with 2.7 x 1.6 on prior examination. There is a precarinal lymph node measuring 1 .6 x 1.4 cm compared with 2.2 x 1.7 cm on prior examination. There is atherosclerosis of the aorta an d coronary arteries. There is emphysema. There are groundglass areas of consolidation in the right up per lobe and superior segment of the right lower lobe, improved since prior study. There is destructi on of the right second and third ribs which are contiguous with the mass. There is severe thoracic sp ondylosis. There is a port catheter, tip in the SVC. IMPRESSION: 1. Mildly decreased size of right upper lobe mass allowing for differences of technique. There is adj acent lytic destruction of the right second and third ribs. 2: Improvement of right hilar and mediastinal lymph nodes. With prior examination. 3: Improved airspace consolidation and groundglass opacification of the right upper lobe and superior segment of the right lower lobe which may represent resolving pneumonia and/or atelectasis. Reviewed, dictated and finalized at location A. ATRICIAN IMPRESSION: 1. Mildly decreased size of right upper lobe mass allowing for differences of t echnique. There is adjacent lytic destruction of the right second and third rib s. 2: Improvement of right hilar and mediastinal lymph nodes. With prior examinati on. 3: Improved airspace consolidation and groundglass opacification of the right u pper lobe and superior segment of the right lower lobe which may represent reso lving pneumonia and/or atelectasis.
== END 2022-01-19 09:00 | disposition home or self-care (01) ==
PROVIDERS: PCP Family Medicine; Visit Provider Internal Medicine Hematology & Oncology
DX: C34.11 Malignant neoplasm of upper lobe, right bronchus or lung (principal); R91.8 Other nonspecific abnormal finding of lung field
CPT/HCPCS: 71260; Q9967

== ENCOUNTER 2022-02-24 08:59 | Observation (INO) | payer MEDICARE, SELFPAY ==
[2022-02-24] VITALS (15 sets, daily range): BP systolic 152–178; BP diastolic 91–108; PULSE 75–100; RESP 11–24; TEMP 36.1–36.7; O2SAT 95–100; BMI 18.8
--- NOTE | ~2022-02-24 | CT_ITS ---
EXAMINATION: CT brain wo con DATE: 02/24/2022 13:22 INDICATION: Headache and dizziness. TECHNIQUE: Computed tomography (CT) of the head was performed without intravenous contrast. The mA wa s adjusted according to patient size. Iterative reconstruction technique was employed. The dose-lengt h product was 529.67 mGy-cm. COMPARISON: Head CT 01/03/2022 FINDINGS: There is a 1.7 cm mass in right parietal lobe that is isodense and hyperdense to pickering matte r with surrounding vasogenic edema. There is a 3.2 x 3.3 cm necrotic mass in right cerebellum with villegas rrounding vasogenic edema. There is leftward displacement of the fourth ventricle, which is small. Th e lateral ventricles are normal in size. There is no acute ischemic infarct. There is mild mucosal th ickening in the paranasal sinuses. The mastoid air cells are normal. IMPRESSION: 1. Two brain masses, new from 01/03/2022, consistent with metastatic disease. Reviewed, dictated and finalized at location A. OPHTHALMOLOGIST
--- NOTE | ~2022-02-24 | XR_ITS ---
XR chest 2V DATE: 02/24/2022 12:14 INDICATION: Cough. Weakness. Nausea and vomiting since 02/20/2022. Lung cancer. TECHNIQUE: AP and lateral views COMPARISON: 01/19/2022 CT chest FINDINGS: There are large right upper lobe lung mass is again noted with evidence of bone destruction involving the anterior right second and third ribs. Left internal jugular Port-A-Cath catheter tip overlies the lower aspect of the superior vena cava. Normal heart size. Aortic calcification and mild tortuosity. No hilar or mediastinal enlargement is e vident. With the exception of mild infiltrate around the right lung mass, the lungs appear clear of infiltrat e or consolidation. No pleural effusion or pulmonary vascular congestion or pneumothorax. Osteopenia. Thoracic scoliosis and degenerative spurring IMPRESSION: Large right upper lobe mass with associated anterior right second and third rib destructi on Left Port-A-Cath catheter in lower superior vena cava Reviewed, dictated and finalized at location L. NING AND DEVELOPMENT SPECIALIST IMPRESSION: Large right upper lobe mass with associated anterior right second a nd third rib destruction Left Port-A-Cath catheter in lower superior vena cava
--- NOTE | 2022-02-24 09:04 | ED.GENADULT ---
HPI - General Adult General Chief complaint: Nausea/Vomiting/Diarrhea Stated complaint: n/v since wednesday, cancer pt Time Seen by Provider: 02/24/22 14:05 History of Present Illness HPI narrative: Patient is a 71-year-old female with a history of lung cancer, previously treated with chemo/radiation under Dr. Carmona and now on oral agents, here for evaluation of nausea and vomiting for the past several days. Patient states that she has been unable to tolerate any p.o. since her meal 3 days ago, which was chicken and rice. She denies any abdominal pain, diarrhea, constipation, fevers or chills, unilateral weakness. She has prescribed Zofran for this issue but has not attempted it. She contacted Dr. Carmona who recommended ED evaluation. She continues to smoke cigarettes. Additionally notes that she has had a headache and positional dizziness for the past 2 weeks. Has not been able to tolerate any pain medicine due to the nausea and vomiting. Related Data Home Medications Medication Instructions Recorded Confirmed sertraline 100 mg tablet 200 mg PO HS 08/14/21 02/12/22 sucroferric oxyhydroxide 500 mg 500 mg PO BID 12/11/21 02/12/22 chewable tablet pantoprazole 40 mg tablet,delayed mg PO 02/24/22 02/24/22 release Allergies Allergy/AdvReac Type Severity Reaction Status Date / Time codeine AdvReac Unknown Nausea and Verified 02/24/22 13:38 Vomiting, Dizziness Review of Systems Review of Systems: Gen.: Denies fevers or chills Eyes: Denies eye pain or visual change ENT: Denies congestion Respiratory: Denies shortness of breath or cough CV: Denies chest pain or palpitations GI: Reports nausea and vomiting. Denies abdominal pain or diarrhea denies burning, urgency, frequency or hematuria Musculoskeletal: Denies back pain or muscle pain Neuro: Denies numbness, tingling, weakness or focal weakness Skin: Denies rash Except as documented, all other systems reviewed and negative [facility] Past Medical History Medical History Achrochordon Acute bronchitis, unspecified Alcohol abuse Alcohol use Anxiety disorder, unspecified Benign hypertension BMI 20.0-20.9, adult BMI 21.0-21.9, adult BMI between 19-24,adult Body mass index (BMI) less than 20 Chronic sinus complaints Depression with anxiety Dietary counseling and surveillance (12/07/17) Elevated AFP Elevated bilirubin Elevated fasting glucose Elevated liver enzymes Hepatic cyst Hyperlipidemia, unspecified Liver disease Low back pain Low vitamin D level Mild neurocognitive disorder Other chronic pain Right lower quadrant abdominal pain Routine physical examination Screening for breast cancer Screening for colon cancer Skin lesion Tobacco abuse Urinary symptom or sign Surgical History Surgical History Hx of cataract surgery Family History Family History Mother Hypertension Family history of diabetes mellitus in first degree relative Father Hypertension Family history of diabetes mellitus in first degree relative Family history of coronary artery disease Sibling Hypertension Heart disease COPD (chronic obstructive pulmonary disease) Immune disorder Son Asthma Daughter Hypertension Social History Social History (Updated 12/24/21 @ 08:13 by Donna Olivarez CMA) Smoking packs per day: 0.5 Smoking cigarettes per day: 10.0 Years smoked: 55 Smoking pack-years: 27.50 Smoking status: Former smoker Tobacco type: cigarettes Second hand tobacco smoke exposure: No Alcohol intake: current Drinks per week: 6 Substance use: current Substance use type: marijuana Last use: July Additional occupation/education comments: [employer]-temporary leave of absence. Gender identity (if verbalized by the patient): Femal
[2022-02-24] MEDS: SODIUM CHLORIDE 0.9% IV 1,000 ML 999 ML IV CONT ×2 (09:21→13:41)
[2022-02-24] MEDS: ONDANSETRON INJ 4 MG/2 ML VIAL IV PUSH (09:21)
[2022-02-24 09:52] LABS: Alanine Aminotransferase 14 U/L (6-35); Alkaline Phosphatase 103 U/L (38-126); Anion Gap 9 mmol/L (8-16); Aspartate Amino Transferase 23 U/L (14-36); Basophils Percent Auto 0.3 % (0.2-1.2); Bilirubin,Total 0.5 mg/dL (0.2-1.3); Blood Urea Nitrogen 12 mg/dL (7-17); Calcium 8.8 mg/dL (8.4-10.2); Carbon Dioxide 25 mmol/L (22-30); Chloride 101 mmol/L (98-107); Eosinophils Percent Auto 0.5 % (0-4.4); Estimated CRCL calculation 73 ml/min; Estimated Glomerular Filt Rate > 60; Glucose 122 mg/dL (65-110); Hematocrit 39.4 % (37.0-47.0); Hemoglobin 13.3 g/dL (12.0-15.0); Immature Granulocyte Absolute 0.02 K/mm3 (0.00-0.031); Immature Granulocyte Percent A 0.3 % (0-0.5); Lipase 39 U/L (23-300); Lymphocytes Absolute Auto 0.22 K/mm3 (0.9-3.2); Lymphocytes Percent Auto 3.4 % (18.3-44.2); Magnesium 1.7 mg/dL (1.6-2.3); Mean Corpuscular HGB Conc 33.8 g/dl (32-36); Mean Corpuscular Hemoglobin 30.6 pg (26-34); Mean Corpuscular Volume 90.6 fl (80-100); Monocytes Absolute Auto 0.3 K/mm3 (0.1-0.6); Monocytes Percent Auto 5.3 % (2.6-8.5); Neutrophils Absolute Auto 5.8 K/mm3 (1.3-6.7); Neutrophils Percent Auto 90.2 % (45.5-73.1); Platelet Count Result 199 k/mm3 (150-375); Potassium 3.7 mmol/L (3.4-5.0); Red Blood Count 4.35 M/mm3 (4.2-5.4); Red Cell Distribution Width 13.4 % (11.5-14.5); Sodium 135 mmol/L (137-145); White Blood Count 6.4 K/mm3 (4.5-10.0)
[2022-02-24] MEDS: diphenhydrAMINE HCl INJ 50 MG/ML VIAL 12.5 MG IV PUSH (10:47)
[2022-02-24] MEDS: METOCLOPRAMIDE HCL INJ 10 MG/2 ML VIAL IV PUSH (10:48)
[2022-02-24 11:03] LABS: Add Urine Microscopic? YES; Appearance Urine Slightly Cloudy (Clear); Bilirubin Urine Negative (Negative); Blood Urine 2+ (Negative); Color Urine Yellow (Yellow); Glucose Urine UA Negative (Negative); Ketones Urine 1+ mg/dL (Negative); Leukocyte Esterase Ur Negative LEU/UL (Negative); Nitrate Urine Negative (Negative); Protein Urine Negative (Negative); Specific Grav Ur 1.015 (1.001-1.035); Urobilinogen Urine 0.2 mg/dL (<2.0)
[2022-02-24 11:17] LABS: Amorphous Sediment Urine Few; Mucus Urine Rare /lpf; RBC Urine 21-50 /hpf (0-2); Squamous Epithelial Cell Urine Occasional /hpf (Few); WBC Urine 0-3 /hpf
[2022-02-24] MEDS: DEXAMETHASONE SOD PHOS INJ 4 MG/ML VIAL IV PUSH (13:44)
[2022-02-24 14:33] LABS: Influenza A QL RT-PCR Negative (Negative); Influenza B QL RT-PCR Negative (Negative); SARS-CoV-2 RNA PCR Negative
--- NOTE | 2022-02-24 16:30 | PM.IMHP ---
H&P: HPI History of Present Illness Date/Time: 02/24/22 16:30 Chief Complaint: Nausea and vomiting. Narrative: This is a pleasant 71-year-old smoker with stage IV non-small cell lung cancer, squamous cell of the right upper lobe who presented to the emergency department for evaluation of nausea and vomiting. She was diagnosed with cancer in July 2021, completed chemoradiation, and is currently on immunotherapy. She seems to have been tolerating treatment okay and however for the past week and a half or so she has developed periods of confusion, generalized headache, dizziness, and persistent nausea and vomiting. She has become quite weak and she decided come in today for evaluation. She denies fever, chills, sweats, visual changes, focal weakness, syncope, near syncope, chest pain, pleuritic pain, palpitations, hematemesis, diarrhea, dysuria, and sore throat. She has no known sick contacts. Vital signs were stable on arrival to the ED. She was negative for influenza and COVID. Labs were pretty unremarkable. Chest x-ray showed a large right upper lobe mass with associated anterior right 2nd rib in 3rd rib destruction. Brain CT showed 2 brain masses with surrounding vasogenic edema, new from 01/03/2022, consistent with metastatic disease. ED provider spoke with Dr. Carmona regarding these findings and he recommends starting the patient on dexamethasone and he would like her to be admitted to the hospital. Review of Systems Review of Systems: 12 systems were reviewed and are negative except for as per HPI. [facility] Past Medical History Medical History (Updated 02/25/22 @ 15:43 by Mirtha Marsh PA-C) Alcohol use Anxiety disorder, unspecified Benign hypertension Body mass index (BMI) less than 20 Chronic obstructive pulmonary disease Chronic sinus complaints Depression with anxiety Hepatic cyst Hyperlipidemia, unspecified Liver disease Low vitamin D level Mild neurocognitive disorder Non-small cell carcinoma of right lung, stage 4 Pancreatitis Tobacco dependence Surgical History Surgical History (Updated 02/25/22 @ 15:43 by Mirtha Marsh PA-C) History of benign breast biopsy History of cataract extraction History of total hysterectomy with bilateral salpingo-oophorectomy (BSO) Family History Family History Mother Hypertension Family history of diabetes mellitus in first degree relative Father Hypertension Family history of diabetes mellitus in first degree relative Family history of coronary artery disease Sibling Hypertension Heart disease COPD (chronic obstructive pulmonary disease) Immune disorder Son Asthma Daughter Hypertension Social History Social History (Updated 02/25/22 @ 15:43 by Mirtha Marsh PA-C) Social History: Surrogate medical decision maker: Jany Tenorio, daughter. Code status: Do not resuscitate. Smoking packs per day: 1.5 Smoking cigarettes per day: 30.0 Years smoked: 54 Smoking pack-years: 81.00 Smoking status: Current some day smoker Tobacco type: cigarettes Second hand tobacco smoke exposure: No Alcohol intake: former Drinks per week: 6 Substance use: current Substance use type: marijuana Lack of Transportation: No Lack of Food: Never True Current Housing: I Have Housing Concerned About Future Housing: No Difficulty Paying Gas/Electric Bills: No Difficulty Paying for Meds: No Currently Unemployed: No Education: High School Diploma/GED Difficulty w/ Childcare or Family Care: No Additional living arrangements comments: Lives in [place]. Additional occupation/education comments: [employer]-temporary leave of absence. Spiritual care concerns: No Meds Home Medications and Allergies Home Medications Medication Instructions Recorded Confirmed Type sertraline 100 mg tablet 200 mg PO HS 08/14/21 02/24/22 History umeclidinium 6
--- NOTE | 2022-02-24 19:45 | ADMGEN ---
This patient, Anastasiia Rust, was admitted to 2 Medical Room 241-01. Patient/family oriented to hospital policies and general routines including ID bracelet, bed and alarms, visiting hours, pain management, procedures, bathroom and other care routines, personal items, smoking policy, room service/diet, and visiting hours. Information on how to activate the Rapid Response Team has been discussed. Patient/Family are encouraged to report perceived risks to care and to ask questions if they do not understand what they are told or what they should do.
[2022-02-25] MEDS: DEXAMETHASONE SOD PHOS INJ 4 MG/ML VIAL IV PUSH ×5 (00:09→23:41)
[2022-02-25] MEDS: diazePAM (*CRX) 5 MG TABLET PO ×2 (00:12→21:26)
[2022-02-25] MEDS: ACETAMINOPHEN ELIXIR 325 MG/10.15 ML UDC 650 MG PO ×2 (00:35→23:43)
[2022-02-25 03:11] VITALS: BP 155/100; PULSE 95; RESP 18; TEMP 36.4; O2SAT 95
[2022-02-25 05:52] LABS: Anion Gap 6 mmol/L (8-16); Blood Urea Nitrogen 8 mg/dL (7-17); Calcium 8.8 mg/dL (8.4-10.2); Carbon Dioxide 25 mmol/L (22-30); Chloride 105 mmol/L (98-107); Estimated CRCL calculation 63 ml/min; Estimated Glomerular Filt Rate > 60; Glucose 113 mg/dL (65-110); Magnesium 1.7 mg/dL (1.6-2.3); Potassium 3.8 mmol/L (3.4-5.0); Sodium 136 mmol/L (137-145)
[2022-02-25] MEDS: ONDANSETRON INJ 4 MG/2 ML VIAL IV PUSH ×3 (08:46→19:11)
[2022-02-25 09:35] VITALS: O2SAT 96
[2022-02-25] MEDS: UMECLIDINIUM/VILANTEROL 62.5-25 MCG ELLIPTA 1 PUFF INHALATION (09:36)
[2022-02-25 09:39] VITALS: BMI 19.0
--- NOTE | 2022-02-25 11:47 | PM.IMPN ---
Progress Note: A&P Assessment and Plan (1) Nausea & vomiting: Code(s): R11.2 - Nausea with vomiting, unspecified Status: Acute (2) Vasogenic brain edema: Code(s): G93.6 - Cerebral edema Status: Acute (3) Metastatic cancer to brain: Code(s): C79.31 - Secondary malignant neoplasm of brain Status: Acute (4) Non-small cell carcinoma of right lung, stage 4: Code(s): C34.91 - Malignant neoplasm of unspecified part of right bronchus or lung Status: Acute (5) Tobacco dependence: Code(s): F17.200 - Nicotine dependence, unspecified, uncomplicated Status: Acute Plan -The patient presented to the ED from home for evaluation of multiple symptoms including headache, dizziness, weakness, nausea, and vomiting over the past 1.5 weeks. -Brain CT shows two masses with surrounding vasogenic edema (new compared to CT from 01/11/2022) and she has been started on dexamethasone daily at the request of Dr. Carmona. -Dr. Carmona was consulted, appreciate additional recommendations. -Her nausea, vomiting, and headaches are most likely a result of the brain masses. -Continue supportive care with IV fluid rehydration and antiemetics as needed. -She declines the need for nicotine patch. Subjective Date/time seen: 02/25/22 11:47 Interval history: 71-year-old smoker with stage IV non-small cell lung cancer, squamous cell of the right upper lobe admitted for N/V and found to have brain mets. She states she is feeling better today. Still some nausea but able to keep down breakfast. No vomiting. Review of Systems Review of Systems: All systems reviewed & are unremarkable except as noted in HPI and below Exam Narrative: General: No acute distress, chronically ill appearing Eyes: PERRL, no scleral icterus HEENT: NCAT, external ears normal, MMM Respiratory: No respiratory distress, Lungs CTA bilaterally, no wheezing Cardiovascular: RRR, no murmur Abdominal: Soft, nontender, non distended, no rebound or guarding Musculoskeletal: Moves all 4 extremities, no edema Neurological: A/Ox3, speech clear, no facial asymmetry Skin: Warm, dry, no rashes, alopecia Psychiatric: Normal affect, normal mood Objective Data Vital Signs Vital Signs: Vital Signs - 24 hr 02/24/22 12:17 02/24/22 13:44 02/24/22 12:31 Temperature Pulse Rate 76 82 79 Respiratory Rate 11 L 18 15 Blood Pressure 177/108 H 163/94 H 167/91 H Pulse Oximetry 96 95 97 Oxygen Delivery 02/24/22 14:01 02/24/22 15:01 02/24/22 15:50 Temperature Pulse Rate 86 81 81 Respiratory Rate 19 20 15 Blood Pressure 167/92 H 162/97 H 162/97 H Pulse Oximetry 98 99 97 Oxygen Delivery 02/24/22 17:00 02/24/22 18:03 02/24/22 19:01 Temperature Pulse Rate 78 78 87 Respiratory Rate 24 H 20 19 Blood Pressure 167/97 H 168/100 H 158/91 H Pulse Oximetry 98 97 100 Oxygen Delivery 02/24/22 20:08 02/25/22 03:11 02/25/22 09:35 Temperature 98.1 F 97.6 F Pulse Rate 100 95 Respiratory Rate 20 18 Blood Pressure 152/92 H 155/100 H Pulse Oximetry 98 95 96 Oxygen Delivery Room Air 02/25/22 07:45 Temperature Pulse Rate Respiratory Rate Blood Pressure Pulse Oximetry Oxygen Delivery Room Air Intake/Output Intake/Output: Intake & Output 02/22/22 02/23/22 02/24/22 02/25/22 23:59 23:59 23:59 23:59 Intake Total 2100 320 Output Total 300 500 Balance 1800 -180 Meds/Results Medications: Active Medications Generic Name Dose Route Start Last Admin Trade Name Freq PRN Reason Stop Dose Admin Acetaminophen 650 mg 02/25/22 00:19 02/25/22 00:35 Acetaminophen Elixir 325 Mg/10.15 Ml Udc PO 650 mg Q6H PRN Administration Mild Pain (1-3) or Fever Albuterol 1 puff 02/24/22 23:13 Albuterol Sulfate (*Sp) Aerosol 1 Puff INHALATION Q4H PRN shortness of breath or wheezing Dexamethasone Sodium Phosphate 4 mg 02/25/22 00:00 02/25/22 05:09 Dexameth
[2022-02-25 14:00] VITALS: BP 165/88; PULSE 80; RESP 18; TEMP 36; O2SAT 97
[2022-02-25 14:03] VITALS: BP 178/101
[2022-02-25 14:06] VITALS: BP 170/111
[2022-02-25] MEDS: SERTRALINE HCL 50 MG TABLET 200 MG PO (20:34)
[2022-02-25 22:00] VITALS: BP 162/81; PULSE 75; RESP 21; TEMP 36.6; O2SAT 100
[2022-02-26] VITALS (7 sets, daily range): BP systolic 134–161; BP diastolic 76–101; PULSE 77–93; RESP 16–21; TEMP 36.4–36.6; O2SAT 96–100
[2022-02-26 05:45] LABS: Basophils Percent Auto 0.2 % (0.2-1.2); Eosinophils Percent Auto 0.2 % (0-4.4); Hematocrit 39.3 % (37.0-47.0); Hemoglobin 13.1 g/dL (12.0-15.0); Immature Granulocyte Absolute 0.02 K/mm3 (0.00-0.031); Immature Granulocyte Percent A 0.4 % (0-0.5); Lymphocytes Absolute Auto 0.53 K/mm3 (0.9-3.2); Lymphocytes Percent Auto 9.4 % (18.3-44.2); Mean Corpuscular HGB Conc 33.3 g/dl (32-36); Mean Corpuscular Hemoglobin 30.4 pg (26-34); Mean Corpuscular Volume 91.2 fl (80-100); Mean Platelet Volume 9.3 fl (7.4-10.4); Monocytes Absolute Auto 0.4 K/mm3 (0.1-0.6); Monocytes Percent Auto 6.7 % (2.6-8.5); Neutrophils Absolute Auto 4.7 K/mm3 (1.3-6.7); Neutrophils Percent Auto 83.1 % (45.5-73.1); Platelet Count Result 258 k/mm3 (150-375); Red Blood Count 4.31 M/mm3 (4.2-5.4); Red Cell Distribution Width 13.4 % (11.5-14.5); White Blood Count 5.6 K/mm3 (4.5-10.0)
[2022-02-26 06:00] LABS: Anion Gap 7 mmol/L (8-16); Blood Urea Nitrogen 14 mg/dL (7-17); Calcium 9.1 mg/dL (8.4-10.2); Carbon Dioxide 27 mmol/L (22-30); Chloride 103 mmol/L (98-107); Estimated CRCL calculation 53 ml/min; Estimated Glomerular Filt Rate > 60; Glucose 112 mg/dL (65-110); Potassium 3.8 mmol/L (3.4-5.0); Sodium 137 mmol/L (137-145)
[2022-02-26] MEDS: DEXAMETHASONE SOD PHOS INJ 4 MG/ML VIAL IV PUSH ×2 (06:02→12:17)
[2022-02-26] MEDS: UMECLIDINIUM/VILANTEROL 62.5-25 MCG ELLIPTA 1 PUFF INHALATION (08:59)
[2022-02-26] MEDS: ACETAMINOPHEN ELIXIR 325 MG/10.15 ML UDC 650 MG PO (12:24)
--- NOTE | 2022-02-26 15:35 | PM.DS ---
DS: Admitting Diagnosis Discharge Date 02/26/22 Admitting Diagnosis Dizziness DS: Discharge Diagnosis Discharge Diagnosis (1) Nausea & vomiting: Code(s): R11.2 - Nausea with vomiting, unspecified Status: Acute (2) Vasogenic brain edema: Code(s): G93.6 - Cerebral edema Status: Acute (3) Metastatic cancer to brain: Code(s): C79.31 - Secondary malignant neoplasm of brain Status: Acute (4) Non-small cell carcinoma of right lung, stage 4: Code(s): C34.91 - Malignant neoplasm of unspecified part of right bronchus or lung Status: Acute (5) Tobacco dependence: Code(s): F17.200 - Nicotine dependence, unspecified, uncomplicated Status: Acute DS: Summary Hospital Course Reason for hospitalization: 71yo female with known lung cancer here for dizziness and found to have probable metastatic cancer to the brain. Hospital Course: The patient presented to the ED from home for evaluation of multiple symptoms including headache, dizziness, weakness, nausea, and vomiting ongoing for the past 1.[address] shows two masses with surrounding vasogenic edema (new compared to CT from 01/11/2022) and she was started on dexamethasone at the request of Dr. Carmona. Her symptoms are most likely a result of the brain masses and edema. Dr Carmona discussed options with the patient and she decided to proceed with hospice. Discussed personally with Dr Carmona. Hospice was arranged and gracie was able to be discharged home with hospice on 02/26/22. Plan to continue steroids and add Keppra. Status at Discharge Cognitive/behavioral status at discharge: Stable Time Spent with Patient Time attestation: Total time spent providing and/or coordinating discharge services: 35 minutes Time spent: Greater than 30 minutes Exam Narrative: AF 97.9 161/101 79 18 96% ra Gen - NARD Chest - CTA bilaterally, nml RR CV - RRR S1/S2 Abd - Soft, NT/ND, Positive BS Ext - No pedal edema Neuro - Alert and oriented. Nonfocal exam. Psych - Nml mood and affect Skin - Warm and dry. alopecia totalis DS: Data Data Completed and Pending Labs on day of discharge: Labs from last 24 hours 02/26/22 02/26/22 05:14 05:14 WBC 5.6 RBC 4.31 Hgb 13.1 Hct 39.3 MCV 91.2 MCH 30.4 MCHC 33.3 RDW 13.4 Plt Count 258 MPV 9.3 Immature Gran % (Auto) 0.4 Neut % (Auto) 83.1 H Lymph % (Auto) 9.4 L [place] % (Auto) 6.7 Eos % (Auto) 0.2 Baso % (Auto) 0.2 Lymph # (Auto) 0.53 L [place] # (Auto) 0.4 Eos # (Auto) 0.0 Baso # (Auto) 0.0 Abs Immat Gran (auto) 0.02 Absolute Neuts (auto) 4.7 Absolute Nucleated RBC 0.0 Nucleated RBC % 0.0 Sodium 137 Potassium 3.8 Chloride 103 Carbon Dioxide 27 Anion Gap 7 L BUN 14 D Creatinine 0.60 L Estim Creat Clear Calc 53 Estimated GFR > 60 Glucose 112 H Calcium 9.1 Preliminary micro results at discharge 02/24/22 20:27 Blood Culture - Preliminary Blood 02/24/22 20:27 Blood Culture - Preliminary Blood Discharge Plan Discharge Attending physician on discharge: Bob Eastman Consulting providers: Fredi Carmona ; Kandi Pickard Discharging Clinician: Bob Eastman Anticipated Discharge Date/Time: 02/26/22 15:41 Patient Disposition: Hospice - Home Activity: as tolerated Diet: as tolerated Discharge Instructions: Hospice to follow after discharge Stand Alone Forms: General Discharge Information Discharge Medications: New levetiracetam [Keppra] 500 mg tablet 500 mg PO BID Qty: 60 0RF Rx Instructions: Take 500mg 2x/day for 1 week then 500mg daily there after. dexamethasone 2 mg tablet 2 mg PO TID Qty: 90 0RF Continued Anoro Ellipta 62.5-25 mcg/actuation blister with device 1 inh inhalation Q24H Qty: 180 3RF sertraline 100 mg tablet 200 mg PO HS Rx Instructions: TAKE 2 TABLETS BY MOUTH DAILY
--- NOTE | 2022-02-26 19:27 | PDONCCN ---
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 Patient received concurrent chemoradiation therapy treatment completed in December 2021. Patient started on maintenance treatment with durvalumab. She came into the hospital with confusion, generalized headache, dizziness along with nausea vomiting. She was quite tired and fatigued. She denies any fevers and chills. CT scan of the head was performed that showed 2 brain masses with surrounding vasogenic edema. Patient was admitted to the hospital and started on Keppra as well as steroid. Denies any chest pain and shortness of breath. No other new complaints. Review of Systems - Review of Systems All systems reviewed & are unremarkable except as noted in [facility] and [facility] Medical History: Medical History (Last Updated 02/25/22 @ 15:43 by Mirtha Marsh PA-C) Alcohol use Anxiety disorder, unspecified Benign hypertension Body mass index (BMI) less than 20 Chronic obstructive pulmonary disease Chronic sinus complaints Depression with anxiety Hepatic cyst Hyperlipidemia, unspecified Liver disease Low vitamin D level Mild neurocognitive disorder Non-small cell carcinoma of right lung, stage 4 Pancreatitis Tobacco dependence Surgical History: Surgical History (Last Updated 02/25/22 @ 15:43 by Mirtha Marsh PA-C) History of benign breast biopsy History of cataract extraction History of total hysterectomy with bilateral salpingo-oophorectomy (BSO) Family History: Family History (Last Reviewed 02/25/22 @ 15:43 by Mirtha Marsh PA-C) Mother Hypertension Family history of diabetes mellitus in first degree relative Father Hypertension Family history of diabetes mellitus in first degree relative Family history of coronary artery disease Sibling Hypertension Heart disease COPD (chronic obstructive pulmonary disease) Immune disorder Son Asthma Daughter Hypertension - Social History Social History: Social History (Last Updated 02/25/22 @ 15:43 by Mirtha Marsh PA-C) Alcohol Use: Alcohol intake: former Drinks per week: 6 Substance Use: Substance use: current Substance use type: marijuana Others: Spiritual care concerns: No Smoking Status: Smoking status: Current some day smoker Tobacco type: cigarettes Second hand tobacco smoke exposure: No Smoking Pack-years: Smoking packs per day: 1.5 Smoking cigarettes per day: 30.0 Years smoked: 54 Smoking pack-years: 81.00 Social Determinants of Health: Has the Lack of Transportation Kept You From Medical Appointments or From Getting Medications?: No Within the Past 12 Months, Were You Worried Whether Your Food Would Run Out Before You Got Money to Buy More?: Never True What is Your Housing Situation Today?: I Have Housing Are You Worried That in the Next 2 Months, You May Not Have Your Own Housing to Live In?: No Do You Have Trouble Paying Your Heating Or Electricity Bill?: No Do You Have Trouble Paying For Medicines?: No Are You Currently Unemployed and Looking for Work?: No Highest Level of Education Completed: High School Diploma/GED Do You Have Trouble With Childcare or the Care of a Family Member?: No Exam - Vital Signs Vital Signs - 24 hr 02/25/22 22:00 02/26/22 06:00 02/26/22 06:00 Temperature 36.6 C 36.4 C L 36.4 C L Pulse Rate 75 77 77 Respiratory Rate 21 H 21 H 21 H Blood Pressure 162/81 H 134/76 134/76 Pulse Oximetry 100 100 100 Oxygen Delivery 02/26/22 06:05 02/26/22 06:10 02/26/22 09:01 Temperature 36.6
== END 2022-02-26 16:38 | disposition hospice, home (50) ==
LOC: ANHED 14:05 → ANH2MED 19:40 → ANH3MEDSUR 02-27 12:12
PROVIDERS: Physician Assistant; Admitting Provider Student in an Organized Health Care Education/Training Program; Emergency Provider Emergency Medicine; PCP Family Medicine; Visit Provider Physician Assistant
DX: R11.2 Nausea with vomiting, unspecified (principal); G93.6 Cerebral edema; C79.31 Secondary malignant neoplasm of brain; C34.91 Malignant neoplasm of unspecified part of right bronchus or lung; R51.9 Headache, unspecified; R42 Dizziness and giddiness; F10.10 Alcohol abuse, uncomplicated; F41.8 Other specified anxiety disorders; I10 Essential (primary) hypertension; F12.90 Cannabis use, unspecified, uncomplicated; E78.5 Hyperlipidemia, unspecified; Z20.822 Contact with and (suspected) exposure to COVID-19; R41.9 Unspecified symptoms and signs involving cognitive functions and awareness; Z95.9 Presence of cardiac and vascular implant and graft, unspecified; F17.210 Nicotine dependence, cigarettes, uncomplicated; Z85.118 Personal history of other malignant neoplasm of bronchus and lung; Z92.21 Personal history of antineoplastic chemotherapy; Z79.51 Long term (current) use of inhaled steroids; Z79.899 Other long term (current) drug therapy; Z82.49 Family history of ischemic heart disease and other diseases of the circulatory system; Z83.6 Family history of other diseases of the respiratory system; Z82.5 Family history of asthma and other chronic lower respiratory diseases
CPT/HCPCS: 36415; 70450; 71046; 80048; 80053; 81001; 83690; 83735; 85025; 87040; 87636; 94640; 96361; 96365; 96375; 96376; 99285; A9270; G0378; J0131; J1100; J1200; J2405; J2765; J7030